=== PATIENT | female | born 1950 | race African-American/Black ===

== ENCOUNTER → 2016-08-24 | Outpatient (CLI) | payer OTHER ==
[~2016-08-24] VITALS: Ht 160 cm; Wt 156.8 kg
[~2016-08-24] MED LIST: ALLOPURINOL100 MG PO; AMLODIPINE BESY10 MG PO; ANUCORT-HC25 MG PR; ANUSOL-HC21 GM PR; ASPIRIN81 M2 PO; ATENOLOL100 MG PO; BUSPAR5 MG PO; CLONAZEPAM1 MG PO; COMPAZINE10 MG PO; EFFEXOR XR150 MG PO; LOSARTAN-HCTZ1 EAC2 PO; MOTRIN400 MG PO; NORCO 7.5/321 TABLET PO; NORTRIPTYLINE H25 MG PO; PAXIL10 MG PO; PERCOCET 5/31 TABLET PO; PROVENTIL HFA6.7 GM IH; TRIAMCINOLONE A15 GM TP; VICODIN ES 7.51 EAC1 PO; VITAMIN D31000 UNIT PO; XYZAL5 MG PO; ZOFRAN ODT4 MG PO; ZOFRAN4 MG PO
== END | disposition home or self-care (01) ==
LOC: AMB 13:57
PROC: 0DBK8ZX Excision of Ascending Colon, Via Natural or Artificial Opening Endoscopic, Diagnostic (ICD-10-PCS; principal; 2016-08-24)
PROC: 0DBL8ZX Excision of Transverse Colon, Via Natural or Artificial Opening Endoscopic, Diagnostic (ICD-10-PCS; 2016-08-24)
PROC: 0DBN8ZX Excision of Sigmoid Colon, Via Natural or Artificial Opening Endoscopic, Diagnostic (ICD-10-PCS; 2016-08-24)
PROC: 0DBP8ZX Excision of Rectum, Via Natural or Artificial Opening Endoscopic, Diagnostic (ICD-10-PCS; 2016-08-24)
DX: Z12.11 Encounter for screening for malignant neoplasm of colon (principal); Z86.010 Personal history of colon polyps; I10 Essential (primary) hypertension; D12.2 Benign neoplasm of ascending colon; D12.3 Benign neoplasm of transverse colon; K63.5 Polyp of colon; K62.1 Rectal polyp; K59.00 Constipation, unspecified; J44.9 Chronic obstructive pulmonary disease, unspecified; G47.30 Sleep apnea, unspecified; Z87.891 Personal history of nicotine dependence; E66.9 Obesity, unspecified; Z68.44 Body mass index [BMI] 60.0-69.9, adult; Z79.82 Long term (current) use of aspirin
CPT/HCPCS: 88305; 93005; J2250